=== PATIENT | female | born 2000 | race Caucasian/White ===

== ENCOUNTER 2023-06-26 18:51 | Emergency (ER) | payer MEDICAID ==
[~2023-06-26] VITALS: Ht 162.6 cm; Wt 54.4 kg
[2023-06-26 18:55] VITALS: BP 126/81; PULSE 89; RESP 17; TEMP 97.9; O2SAT 100
[2023-06-26 19:24] LABS: APPEARANCE,URINE CLEAR (CLEAR); BILIRUBIN,URINE NEGATIVE (NEGATIVE); BLOOD, URINE 1+ (NEGATIVE); COLOR,URINE YELLOW (YELLOW); LEUKOCYTE ESTERASE ,URINE NEGATIVE (NEGATIVE); NITRITE, URINE NEGATIVE (NEGATIVE); PROTEIN,URINE NEGATIVE (NEGATIVE); UGLUCOSE NEGATIVE (NEGATIVE); UROBILINOGEN,URINE 0.2 EU/dL (0.2 - 1)
[2023-06-26 19:25] VITALS: O2SAT 100
[2023-06-26 19:35] LABS: WBC,URINE 0-5 /HPF (0-5)
[2023-06-26 19:36] LABS: BACTERIA,URINE FEW /HPF (None Seen); SQUAMOUS EPITHELIAL CELL,UR 4-10 (MOD) /LPF (0-3 (FEW))
== END 2023-06-26 19:58 | disposition home or self-care (01) ==
LOC: MED 18:51
DX: O20.0 Threatened abortion (principal); Z3A.01 Less than 8 weeks gestation of pregnancy
CPT/HCPCS: 76817; 81001; 99284; Q0092